=== PATIENT | female | born 1930 | race African-American/Black ===

== ENCOUNTER 2020-05-08 14:13 | Emergency (ER) | payer OTHER ==
[~2020-05-08] VITALS: Ht 175.3 cm; Wt 68.0 kg
[2020-05-08 17:52] VITALS: BP 147/66
== END 2020-05-08 18:09 | disposition home or self-care (01) ==
LOC: ER 14:27
DX: M54.2 Cervicalgia (principal); E78.00 Pure hypercholesterolemia, unspecified; I10 Essential (primary) hypertension
CPT/HCPCS: 93005; 99284